=== PATIENT | male | born 1985 | race Caucasian/White ===

== ENCOUNTER 2024-09-11 17:20 | Inpatient (IN) | payer OTHER ==
[2024-09-11 17:53] VITALS: BMI 27.0
[2024-09-11] MEDS ORDERED: chlordiazePOXIDE HCL 25 MG CAPSULE PO PRN (17:55)
[2024-09-11] MEDS ORDERED: MAG HYDROX/AL HYDROX/SIMETH 30 ML UNIT-DOSE CUP PO PRN (17:58)
[2024-09-11] MEDS ORDERED: POLYETHYLENE GLYCOL (HEALTHYLAX) 3350 17 GM PACKET PO PRN (17:58)
[2024-09-11] MEDS ORDERED: MAGNESIUM HYDROX 2400MG/30ML ORAL SUSPENSION 30 ML CUP PO PRN (17:58)
[2024-09-11] MEDS ORDERED: ACETAMINOPHEN 325 MG TABLET (FP) PO PRN (17:58)
[2024-09-11] MEDS ORDERED: guaiFENesin 600 MG TABLET.ER (FP) PO PRN (17:58)
[2024-09-11] MEDS ORDERED: NALOXONE (NARCAN) HCL 4 MG/0.1 ML SPRAY NS PRN (17:58)
[2024-09-11] MEDS ORDERED: ONDANSETRON *ODT* 4 MG TABLET SL PRN (17:58)
[2024-09-11] MEDS ORDERED: BISMUTH SUBSALICYLATE 524 MG/30 ML PO PRN (17:58)
[2024-09-11] MEDS ORDERED: DICYCLOMINE HCL 10 MG CAPSULE PO PRN (17:58)
[2024-09-11] MEDS ORDERED: BENZONATATE 200 MG CAPSULE PO PRN (17:58)
[2024-09-11] MEDS ORDERED: IBUPROFEN 600 MG TABLET (FP) PO PRN (17:58)
[2024-09-11] MEDS ORDERED: LOPERAMIDE HCL 2 MG CAPSULE PO PRN (17:58)
[2024-09-11] MEDS ORDERED: NICOTINE POLACRILEX 2 MG LOZENGE BC PRN (17:58)
[2024-09-11] MEDS ORDERED: IBUPROFEN 400 MG TABLET (FP) PO PRN (17:58)
[2024-09-11] MEDS ORDERED: METOPROLOL TARTRATE 25 MG TABLET (FP) ONE (18:17)
[2024-09-11] MEDS ORDERED: levETIRAcetam 500 MG TABLET (FP) PO ONE (18:17)
[2024-09-11] MEDS ORDERED: chlordiazePOXIDE HCL 25 MG CAPSULE ONE (18:17)
[2024-09-11] MEDS: METOPROLOL TARTRATE 25 MG TABLET (FP) PO ONE (18:19)
[2024-09-11] MEDS: chlordiazePOXIDE HCL 25 MG CAPSULE PO ONE (18:19)
[2024-09-11] MEDS: levETIRAcetam 500 MG TABLET (FP) PO ONE (18:19)
[2024-09-11] MEDS ORDERED: LORazepam 2 MG TABLET ONE (18:52)
[2024-09-11] MEDS: LORazepam 2 MG TABLET PO ONE (18:54)
[2024-09-11] MEDS: chlordiazePOXIDE HCL 25 MG CAPSULE PO SCH (22:27)
[2024-09-11] MEDS: THIAMINE 100 MG TABLET PO SCH (22:27)
[2024-09-11] MEDS: levETIRAcetam 500 MG TABLET (FP) PO SCH (22:27)
[2024-09-11] MEDS: MELATONIN 5 MG TABLETS PO SCH (22:27)
[2024-09-12 09:23] LABS: HEMATOCRIT 44.1 % (35.4-49); HEMOGLOBIN 14.5 GM/dL (11.7-16.9); MCHC 32.8 g/dl (32.0-35.9); MEAN CELL VOLUME 91.7 fl (80-96); MEAN PLT VOLUME 9.2 fl (7.5-11.1); PLATELET COUNT 130 10^3/uL (134-434); RBC 4.81 M/mm3 (4.00-5.60); RDW 15.3 % (11.9-15.9); WHITE BLOOD COUNT 6.8 K/mm3 (4.0-10.0)
[2024-09-12 09:47] LABS: CHLORIDE 104 mmol/L (98-107); POTASSIUM 3.4 mmol/L (3.5-5.1); SODIUM 141 mmol/L (136-145)
[2024-09-12 10:09] LABS: GLUCOSE,RANDOM 115 mg/dL (74-106)
[2024-09-12 10:10] LABS: ALBUMIN 3.8 g/dl (3.4-5.0); ANION GAP 9 mmol/L (4-13); BLOOD UREA NITROGEN 13.9 mg/dL (7-18); CO2 28 mmol/L (21-32)
[2024-09-12 10:12] LABS: CREATININE 0.8 mg/dL (0.55-1.3); SGOT/AST 129 U/L (15-37); SGPT/ALT 141 U/L (13-61)
[2024-09-12 10:13] LABS: TOT PROT 7.4 g/dl (6.4-8.2)
[2024-09-12] MEDS: PRENATAL VITAMINS W/ FOLIC ACID TABLET (FP) PO SCH (10:13)
[2024-09-12 10:14] LABS: ALK PHOS 90 U/L (45-117)
[2024-09-12 11:03] LABS: CALCIUM 9.7 mg/dL (8.5-10.1)
[2024-09-12] MEDS: POTASSIUM CHLORIDE ORAL LIQUID 20 MEQ/15 ML PO ONE ×2 (14:03→14:04)
[2024-09-12] MEDS: METHOCARBAMOL 500 MG TABLET PO PRN (23:19)
[2024-09-13] MEDS: chlordiazePOXIDE HCL 25 MG CAPSULE PO SCH (05:34)
[2024-09-13 10:36] LABS: POTASSIUM 3.9 mmol/L (3.5-5.1)
[2024-09-13 10:47] LABS: CALCIUM 9.6 mg/dL (8.5-10.1)
[2024-09-13 10:49] LABS: BLOOD UREA NITROGEN 9.8 mg/dL (7-18)
[2024-09-13 10:51] LABS: CREATININE 0.9 mg/dL (0.55-1.3)
[2024-09-13 10:54] LABS: BILIRUBIN,TOTAL 0.9 mg/dL (0.2-1); TOT PROT 7.8 g/dl (6.4-8.2)
[2024-09-13] MEDS ORDERED: LORazepam 1 MG TABLET PO PRN (11:43)
[2024-09-13] MEDS: LORazepam 2 MG TABLET PO SCH (17:05)
[2024-09-14] MEDS ORDERED: chlordiazePOXIDE HCL 10 MG CAPSULE PO PRN
[2024-09-14] MEDS ORDERED: chlordiazePOXIDE HCL 10 MG CAPSULE PO SCH (05:00)
[2024-09-14] MEDS: LORazepam 1 MG TABLET PO SCH (05:32)
[2024-09-15] MEDS ORDERED: LORazepam 0.5 MG TABLET PO PRN
[2024-09-15] MEDS ORDERED: chlordiazePOXIDE HCL 10 MG CAPSULE PO SCH (05:00)
[2024-09-15] MEDS: LORazepam 0.5 MG TABLET PO SCH (05:35)
[2024-09-15] MEDS: BENZOCAINE/MENTHOL (CHLORASEPTIC ) LOZENGE MM PRN (05:37)
[2024-09-15] MEDS: LORazepam 1 MG TABLET PO ONE (16:35)
[2024-09-15] MEDS: ACETAMINOPHEN 325 MG TABLET (FP) PO ONE (16:35)
[2024-09-15] MEDS: NICOTINE POLACRILEX 2 MG GUM BUC PRN (18:15)
[2024-09-15] MEDS: propRANOLol HCL 10 MG TABLET PO ONE (23:19)
[2024-09-15] MEDS: ASPIRIN 325 MG ENTERIC COATED TABLET (FP) PO ONE (23:19)
[2024-09-15] MEDS: BENZONATATE 200 MG CAPSULE PO PRN (23:43)
[2024-09-15] MEDS: P-EPHED 60MG/TRIPROLIDI 2.5MG TABLET PO PRN (23:43)
[2024-09-16 01:21] LABS: URINE APPEARANCE CLEAR; URINE COLOR AMBER; URINE GLUCOSE (UA) NEGATIVE (NEGATIVE)
[2024-09-16 01:22] LABS: PH,URINE 5.5 (5.0-8.0); URINE BILIRUBIN NEGATIVE (NEGATIVE); URINE KETONE TRACE (NEGATIVE); URINE NITRITE NEGATIVE (NEGATIVE); URINE PROTEIN 1+ (NEGATIVE); URINE UROBILINOGEN 0.2 mg/dL (0.2-1.0)
[2024-09-16 01:23] LABS: URINE LEUK ESTERASE NEGATIVE (NEGATIVE)
[2024-09-16] MEDS ORDERED: chlordiazePOXIDE HCL 10 MG CAPSULE PO ONE (05:00)
[2024-09-16] MEDS: LORazepam 0.5 MG TABLET PO ONE (05:58)
[2024-09-16 09:01] VITALS: BP 131/81; PULSE 95; RESP 18; TEMP 96.9
== END 2024-09-16 10:46 | disposition home or self-care (01) | DRG 775 ==
LOC: YASAS 17:20 → Y3N 18:59
PROVIDERS: ADMIT Allergy & Immunology; ATTEND Allergy & Immunology
PROC: HZ2ZZZZ Detoxification Services for Substance Abuse Treatment (ICD-10-PCS; principal; 2024-09-11)
DX: F10.230 Alcohol dependence with withdrawal, uncomplicated (principal); F17.210 Nicotine dependence, cigarettes, uncomplicated; U07.1 COVID-19; E87.6 Hypokalemia; R74.01 Elevation of levels of liver transaminase levels; Z56.0 Unemployment, unspecified
CPT/HCPCS: 0241U-QW; 36415; 80053; 80305; 80307; 81003; 85027; 86780; 93005; 93010